=== PATIENT | male | born 1990 | race Native Hawaiian/Other Pacific Islander ===

== ENCOUNTER 2016-07-24 12:36 | Observation (INO) | payer OTHER ==
[~2016-07-24] VITALS: Ht 175.3 cm; Wt 109.1 kg
[~2016-07-24 12:36] MED LIST: LISI20TA11 PO
[2016-07-24 14:14] LABS: PLATELET COUNT 296 K/uL (142-355)
[2016-07-24 14:40] LABS: PARTIAL THROMBOPLASTIN TIME 27.6 SECONDS (24.5-33.6)
[2016-07-24 15:15] VITALS: BP 157/94; TEMP 97.8; Ht 175.3 cm; Wt 109.1 kg
[2016-07-24 15:16] LABS: POTASSIUM 3.3 mmol/L (3.6-5.2); SODIUM 133 mmol/L (136-145)
[2016-07-24 16:00] VITALS: BP 157/94; TEMP 97.8
[2016-07-24 20:00] VITALS: BP 116/61; TEMP 98.2
[2016-07-25] VITALS: BP 117/71; TEMP 98.2
[2016-07-25 04:00] VITALS: BP 87/44; TEMP 97.6
[2016-07-25 05:02] LABS: PLATELET COUNT 269 K/uL (142-355)
[2016-07-25 05:37] LABS: POTASSIUM 3.7 mmol/L (3.6-5.2); SODIUM 136 mmol/L (136-145)
[2016-07-25 08:00] VITALS: BP 97/67; TEMP 97.6
[2016-07-25 12:00] VITALS: BP 99/46; TEMP 98
[2016-07-25 13:30] VITALS: BP 105/65
== END 2016-07-25 16:55 | disposition home or self-care (01) ==
LOC: MED/SURG 12:36
PROVIDERS: Family Medicine; ADMIT Nurse Practitioner Family
DX: R07.9 Chest pain, unspecified (principal); X37.1XXA Tornado, initial encounter; I10 Essential (primary) hypertension; R53.83 Other fatigue; J02.0 Streptococcal pharyngitis
CPT/HCPCS: 36415; 36591; 80053; 82550; 83735; 84484; 85027; 85610; 85730; 93005; 96360; 96361; 96366; 96374; 96375; 99220; G0378; G0379; J1885

== ENCOUNTER 2019-05-26 13:18 | Emergency (ER) | payer OTHER ==
[~2019-05-26] VITALS: Ht 175.3 cm; Wt 109.3 kg
[2019-05-26 13:22] VITALS: BP 202/118; TEMP 98.4
== END 2019-05-26 14:28 | disposition home or self-care (01) ==
LOC: ED 13:18
DX: S60.221A Contusion of right hand, initial encounter (principal); W23.0XXA Caught, crushed, jammed, or pinched between moving objects, initial encounter; Y92.69 Other specified industrial and construction area as the place of occurrence of the external cause
CPT/HCPCS: 99282; J1885